=== PATIENT | male | born 1970 | race Caucasian/White ===

== ENCOUNTER 2019-08-22 07:52 | Outpatient (CLI) | payer MEDICARE, OTHER, SELFPAY ==
[2019-08-22 08:51] LABS: Estmated Average Glucose 134; Hemoglobin A1C 6.3 % (4.0-6.0)
== END 2019-08-22 07:53 | disposition home or self-care (01) ==
LOC: LAB 07:53
PROVIDERS: Family Provider Family Medicine; PCP Family Medicine; Visit Provider Family Medicine
DX: E11.9 Type 2 diabetes mellitus without complications (principal)
CPT/HCPCS: 36415; 83036

== ENCOUNTER 2022-02-17 13:46 | Emergency (ER) | payer MEDICARE, OTHER, SELFPAY ==
[2022-02-17 14:36] VITALS: BP 172/104; PULSE 93; RESP 16; TEMP 36.8; O2SAT 97; BMI 38.0
--- NOTE | 2022-02-17 16:12 | W.ED.GENADLT ---
HPI - General Adult General: Chief complaint: General Medical Stated complaint: Male issues Time Seen by Provider: 02/17/22 15:22 Source: patient and family Mode of arrival: ambulatory Limitations: no limitations History of Present Illness: Patient presents to the emergency department because he has a foreskin is retracted during showering this morning and he cannot seem to return it back to its anatomic position. He states he has not had much in the way of any issues with with this being a problem in the past. He denies any other symptoms at this time. Associated symptoms: Deny chest pain, dyspnea, headache(s), nausea, rash, palpitations or vomiting Review of Systems Const: Denies: fever(s) or chills Card: Denies: chest pain or palpitations Resp: Denies: dyspnea or productive cough GI: Denies: abdominal pain, nausea or vomiting : Denies: flank pain, difficulty urinating, dysuria or urinary frequency Musc: Denies: back pain or extremity pain Skin/Breast: Denies: rash or pruritus Neuro: Denies: headache(s), numbness in extremities or weakness in extremities Physical Exam Narrative: EXAM NARRATIVE: The patient's cooperative, calm, fluent and goal-directed and speech. GI: COMMON NORMALS: Normal to inspection, nondistended, normoactive bowel sounds present, Soft to palpation, non-tender, No hepatosplenomegaly present and no masses PALPATION: Yes Soft to palpation and Yes No hepatosplenomegaly present : PENIS: uncircumcised and paraphimosis MEATUS: meatus normal OTHER: He has an edematous glans penis with an edematous distal foreskin. Course Reevaluation(s): Reevaluation #1: Patient initially was treated with ice pack to the groin. Little success at that time. Subsequently his penis from glans to base of the shaft was compressed using a compression bandage. After approximately 15 to 20 minutes of compression the foreskin was reduced. We will allow him to continue with ice pack for discomfort and then ensure that he is able to urinate prior to discharge. I discussed the need for urology follow-up for evaluation for circumcision to prevent recurrence. Time: 17:53 Consultations: Consultation #1: Discussed with Dr. López who will see him in follow-up. Time: 17:57 Vital Signs: Vital signs: Vital Signs Temperature 98.3 F 02/17/22 14:36 Pulse Rate 93 02/17/22 14:36 Respiratory Rate 16 02/17/22 14:36 Blood Pressure 172/104 02/17/22 14:36 Pulse Oximetry 97 02/17/22 14:36 Oxygen Delivery Me thod 02/17/22 14:36 MDM - General Adult Medical Decision Making Uncircumcised male who had some difficulties in the past but only transiently with reducing his foreskin to anatomic position today came to the emergency department because he was unsuccessful with reducing his foreskin. Eventually after ice and compression of the penile shaft and glans we were able to successfully manually reduce the foreskin and he was able to urinate successfully afterwards. Urology was consulted for follow-up and the patient stable to be discharged home with follow-up. Discharge Plan Discharge Patient Disposition: Home Clinical Impression: Paraphimosis Condition: Stable Prescriptions: No Action lisinopril 5 mg Tablet 5 mg PO DAILY metformin 500 mg tablet extended release 24 hr 500 mg PO DAILY duloxetine 60 mg Capsule,Delayed Release(Dr/Ec) 60 mg PO DAILY Men's One Daily Tablet 1 tab PO DAILY Discharge Orders: Discharge ED (Routine); Ordered 02/17/22 Ordered By: Herman Arora Referrals: Deven López MD [Physician] - 4-7 days (paraphimosis referral) Discharge Diet: Usual diet Discharge Activity: Resume usual activity Patient Instructions: Acute Paraphimosis (ED), Opioid Safety Activity Restrictions/Additional Instructions: Continue usual activities. Be mindful of not allowing her foreskin to remain in a retracted position. Should this occur and you are unable to reduce it back to its normal position return to the emergency department immediately. We have made a arrangement for Dr. López to see you in follow-up. He should contact you or you may contact his office number for an appointment. Coding Level of Care Code ED Supervisor Insulation for Chg Fwd Exam Expanded Problem Focused
== END 2022-02-17 18:30 | disposition home or self-care (01) ==
PROVIDERS: Emergency Provider Emergency Medicine
DX: N47.2 Paraphimosis (principal); Z79.84 Long term (current) use of oral hypoglycemic drugs
CPT/HCPCS: 99282

== ENCOUNTER → 2022-03-17 08:19 | Outpatient (BNVA) | payer MEDICARE, OTHER, SELFPAY | PROVIDERS: Visit Provider Urology | DX: N47.2 Paraphimosis (principal); N47.1 Phimosis; N48.1 Balanitis | CPT/HCPCS: 81003; 99213 ==

== ENCOUNTER → 2022-08-16 16:15 | Outpatient (BNVA) | payer MEDICARE, OTHER, SELFPAY | PROVIDERS: PCP Family Medicine; Visit Provider Urology | DX: N48.1 Balanitis (principal); N47.1 Phimosis | CPT/HCPCS: 99213 ==

== ENCOUNTER → 2022-10-04 17:27 | Outpatient (BNVA) | payer MEDICARE, OTHER, SELFPAY | PROVIDERS: PCP Family Medicine; Visit Provider Urology | DX: N47.1 Phimosis (principal); N48.1 Balanitis | CPT/HCPCS: 88305 ==

== ENCOUNTER → 2022-11-22 14:46 | Outpatient (BNVA) | payer MEDICARE, OTHER, SELFPAY | PROVIDERS: PCP Family Medicine; Visit Provider Urology | DX: N47.1 Phimosis (principal); N48.1 Balanitis | CPT/HCPCS: 99213 ==

== ENCOUNTER 2023-06-06 08:22 | Outpatient (CLI) | payer MEDICARE, OTHER, SELFPAY ==
--- NOTE | 2023-06-06 08:29 | US_ITS ---
WS: [id number] RIGHT UPPER QUADRANT ULTRASOUND HISTORY: ELEVATED LIVER ENZYMES COMPARISON: None available. Liver: 19.3 cm in length. Moderately enlarged liver with hepatic steatosis. No mass or bile duct dila tation. Portal Vein: Normal hepatopetal flow with monophasic waveform. Gallbladder: Normally distended gallbladder with several stones. No wall thickening or pericholecysti c fluid. CBD: 0.5 cm Pancreas: Partially obscured. Right kidney: 11.8 cm in length. Normal size and echogenicity. No hydronephrosis or mass. Aorta and IVC: Unremarkable abdominal aorta and IVC. No ascites. IMPRESSION: 1. Cholelithiasis without acute cholecystitis. 2. Moderate hepatomegaly and hepatic steatosis.
== END 2023-06-06 08:23 | disposition home or self-care (01) ==
PROVIDERS: PCP Family Medicine; Visit Provider Family Medicine
DX: K80.20 Calculus of gallbladder without cholecystitis without obstruction (principal); R16.0 Hepatomegaly, not elsewhere classified; K76.0 Fatty (change of) liver, not elsewhere classified; R74.8 Abnormal levels of other serum enzymes
CPT/HCPCS: 76705

== ENCOUNTER 2023-06-13 10:10 | Outpatient (RCR) | payer OTHER, MEDICARE, SELFPAY | END 2023-06-24 23:59 | disposition home or self-care (01) | LOC: SPT 10:10 | PROVIDERS: PCP Family Medicine; Visit Provider Family Medicine | DX: M54.2 Cervicalgia (principal); M54.9 Dorsalgia, unspecified | CPT/HCPCS: 97110; 97161 ==

== ENCOUNTER 2023-06-25 06:00 | Outpatient (RCR) | payer OTHER, MEDICARE, SELFPAY | END 2023-07-25 23:59 | disposition home or self-care (01) | LOC: SPT 06:00 | PROVIDERS: PCP Family Medicine; Visit Provider Family Medicine | DX: M54.2 Cervicalgia (principal); M54.9 Dorsalgia, unspecified | CPT/HCPCS: 97110 ==

== ENCOUNTER → 2023-07-03 08:07 | Outpatient (BNVA) | payer MEDICARE, SELFPAY | PROVIDERS: PCP Family Medicine; Referring Provider Family Medicine; Visit Provider Surgery | DX: Z12.11 Encounter for screening for malignant neoplasm of colon (principal) | CPT/HCPCS: 99024; 99203 ==

== ENCOUNTER 2023-07-25 09:35 | Day surgery (SDC) | payer MEDICARE, SELFPAY ==
[2023-07-25 09:54] VITALS: BP 162/110; PULSE 90; RESP 16; TEMP 36.4; O2SAT 97
--- NOTE | 2023-07-25 10:05 | P.ANESASSM_ITS ---
Pre-Anesthetic Assessment Height/Weight: Height 1.73 m Weight 108.862 kg Temp Pulse Resp BP Pulse Ox O2 Del Method 97.5 F L 90 16 162/110 97 Room Air 07/25/23 09:54 07/25/23 09:54 07/25/23 09:54 07/25/23 09:54 07/25/23 09:54 07/25/23 09:54 Preop Diagnosis: screening Operation Date: 07/25/23 10:45 Proposed Procedures p 04597 colon G0121 screen colon A risk Z12.11(Not Applicable) - Marino Nair DO Familial anesthetic complications: none Was Beta Sandra taken within 24 hours: N/A Was Clonidine taken within 24 hours: N/A Last intake: Intake Last Liquid Date 07/24/23 Last Liquid Time 21:00 Last Solid Date 07/23/23 Last Solid Time 21:00 Social No alcohol and No tobacco Exam alert and oriented x 3 Airway Mallampati: Class II Dentition: full History/ROS No significant history except as noted Pulmonary None reported CV/HEM Hypertension None reported Hepatic None reported GI None reported Metabolic Diabetes Mellitus [facility] None reported Neuropsych None reported Anesthetic Plan ASA status: 2 Anesthesia: Anesthesia Evaluation and MAC Risk of > 500 ml blood loss (7ml/kg in children): No Medications/Allergies Home Medications Medication Instructions Recorded Confirmed Last Taken Type duloxetine 60 mg capsule,delayed 60 mg PO DAILY 02/17/22 07/24/23 07/24/23 History release lisinopril 5 mg tablet 5 mg PO DAILY 02/17/22 07/24/23 07/24/23 History metformin 500 mg tablet,extended 1,000 mg PO DAILY 02/17/22 07/24/23 07/24/23 History release 24 hr multivitamin with minerals (Men's 1 tab PO DAILY 02/17/22 07/24/23 07/24/23 History One Daily tablet) semaglutide 0.25 mg or 0.5 mg (2 0.25 mg SUBCUT Q7D 07/03/23 07/24/23 07/17/23 History mg/3 mL) subcutaneous pen injector (Ozempic) duloxetine 30 mg capsule,delayed 30 mg PO DAILY 07/24/23 07/24/23 07/24/23 History release omeprazole 20 mg capsule,delayed 20 mg PO DAILY 07/24/23 07/24/23 07/24/23 History release Allergies Allergy/AdvReac Type Severity Reaction Status Date / Time No Known Allergies Allergy Verified 07/03/23 08:09 [facility] Anesthesia Family History Father Cancer prostate Mother No problems noted. Social History Smoking and tobacco/nicotine status: never used tobacco/nicotine Alcohol intake: current Alcohol intake frequency: holidays/special occasions only Substance/Drug Use: never Marital status: Current occupational status: disabled Data Anesthesia Cardiac Studies: No Data to Display
[2023-07-25 10:06] LABS: Glucose Point of Care 118 mg/dL (70-110)
[2023-07-25] MEDS: sodium chloride 0.9% 1,000 ML 30 ML IV (10:11)
--- NOTE | 2023-07-25 10:35 | W.PM.OPSUD ---
Surgery/Procedure H&P Update DATE OF PROCEDURE: July 25, 2023 DATE H&P PERFORMED: 07/03/23 H&P UPDATE INFORMATION: I have reviewed H&P completed within last 30 days, I have examined patient prior to procedure and No changes to prior documentation PREOP DIAGNOSIS: screening PLANNED PROCEDURE: Operation Date: 07/25/23 10:45 Proposed Procedures p 78221 colon G0121 screen colon A risk Z12.11(Not Applicable) - Marino Nair, DO
[2023-07-25 11:04] VITALS: BP 124/88; PULSE 97; RESP 16; TEMP 36.1; O2SAT 96
[2023-07-25 11:09] VITALS: BP 128/78; PULSE 83; RESP 18; O2SAT 97
[2023-07-25 11:19] VITALS: BP 134/88; PULSE 79; RESP 18; O2SAT 97
--- NOTE | 2023-07-25 11:35 | ANE.PACU2 ---
Inpatient post-anesthesia follow up: Airway intact: Yes Vital signs: Temperature 97.0 F Pulse Rate 79 Respiratory Rate 18 Blood Pressure 134/88 Pulse Oximetry 97 Oxygen Delivery Me thod Room Air Oxygen Flow Rate Fraction of Inspir ed Oxygen Hydration adequate: Yes Nausea and vomiting: No Pain level: 1 Mental status: Baseline
== END 2023-07-25 11:36 | disposition home or self-care (01) ==
PROVIDERS: PCP Family Medicine; Visit Provider Surgery
PROC: 0DJD8ZZ Inspection of Lower Intestinal Tract, Via Natural or Artificial Opening Endoscopic (ICD-10-PCS; CPT 45378; principal; 2023-07-25 10:45)
DX: Z12.11 Encounter for screening for malignant neoplasm of colon (principal); K57.30 Diverticulosis of large intestine without perforation or abscess without bleeding; I10 Essential (primary) hypertension; E11.9 Type 2 diabetes mellitus without complications; Z79.84 Long term (current) use of oral hypoglycemic drugs
CPT/HCPCS: 36416; 82962; G0121; J2704; J7030

== ENCOUNTER 2023-07-26 06:00 | Outpatient (RCR) | payer MEDICARE, SELFPAY | END 2023-08-23 23:59 | disposition home or self-care (01) | LOC: SPT 06:00 | PROVIDERS: PCP Family Medicine; Visit Provider Family Medicine | DX: M54.2 Cervicalgia (principal); M54.9 Dorsalgia, unspecified | CPT/HCPCS: 97110 ==

== ENCOUNTER 2024-02-06 10:37 | Outpatient (CLI) | payer MEDICARE, SELFPAY ==
--- NOTE | 2024-02-06 10:48 | MR_ITS ---
WS: [id number] MRI CERVICAL SPINE NONCONTRAST HISTORY: TRIGEMINAL NEURALGIA COMPARISON: None available. Technique: Multiplanar, multisequence noncontrast imaging of the cervical spine. Mild straightening of the normal cervical lordosis may be positional. Mild disc space narrowing and d esiccation. Small vertebral body osteophytes. Signal within the cervical cord is normal. Visualized posterior fossa is unremarkable. Craniocervical junction, C1 and C2 relationship, odontoid process and soft tissues are normal. C2-C3: Normal. C3-C4: Mild osteophytic ridging and disc bulging. Mild bilateral foraminal narrowing. C4-C5: Mild osteophytic ridging and disc bulging. Small foraminal osteophytes. No significant stenosi s. C5-C6: Mild osteophytic ridging and disc bulging. Small RIGHT foraminal osteophytes resulting in mild RIGHT foraminal stenosis. C6-C7: Mild osteophytic ridging and disc bulging. Slightly greater osteophytosis LEFT foramen. There is a shallow LEFT paracentral disc osteophyte. Mild central and bilateral foraminal stenosis. C7-T1: Normal. Paraspinal soft tissue are normal. MR/MR cervical spin wo con* [id number] IMPRESSION: 1. No high-grade central or foraminal stenosis. 2. Mild diffuse spondylosis. 3. C6-7: Mild central and bilateral foraminal stenosis due to disc and osteoph yte disease as above. 4. Mild bilateral foraminal narrowing at C3-4 and on the RIGHT at C5-6.
== END 2024-02-06 10:38 | disposition home or self-care (01) ==
LOC: RAD 10:38
PROVIDERS: PCP Family Medicine; Visit Provider Family Medicine
DX: G50.0 Trigeminal neuralgia (principal); M25.78 Osteophyte, vertebrae; M54.2 Cervicalgia
CPT/HCPCS: 72141

== ENCOUNTER 2024-08-15 01:00 | Emergency (ER) | payer MEDICARE, SELFPAY ==
[2024-08-15] VITALS (8 sets, daily range): BP systolic 133–226; BP diastolic 81–123; PULSE 77–86; RESP 14–21; TEMP 36.4; O2SAT 95–99; BMI 37.2
--- NOTE | 2024-08-15 01:12 | ECG_ITS ---
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1970 Requested By: Jordan Muñoz Order Number: [id number] Tristan MD: MARIEL SANTANA Measurements Intervals [place] Rate: 80 P: 41 MO: 150 QRS: -31 QRSD: 118 T: 44 QT: 382 QTc: 443 Interpretive Statements SINUS RHYTHM WITH OCCASIONAL SUPRAVENTRICULAR PREMATURE COMPLEXES LEFT AXIS DEVIATION [QRS AXIS < -30] VOLTAGE CRITERIA FOR LVH [MEETS CRITERIA IN ONE OF: R(aVL), S(V1), R(V5), R(V5/V6)+S(V1)] POSSIBLE LATERAL MYOCARDIAL INFARCTION , OF INDETERMINATE AGE [30 ms Q WAVE IN I/aVL/V5/V6] No previous ECG available for comparison Electronically Signed On 08-19-2024 23:44:50 CRUTCHING CONTRACTOR by MARIEL SANTANA [email or web address]
--- NOTE | 2024-08-15 02:12 | XRR_ITS ---
PROCEDURE INFORMATION: Exam: XR Chest Exam date and time: 08/15/2024 2:21 AM Age: 54 years old Clinical indication: Other: High blood pressure; Additional info: Hypertension chest pain TECHNIQUE: Imaging protocol: Radiologic exam of the chest. Views: 1 view. COMPARISON: CR XR chest 2V* [id number] 03/24/2021 2:16 PM FINDINGS: Lungs: Unremarkable. No consolidation. Pleural spaces: Unremarkable. No pleural effusion. No pneumothorax. Heart/Mediastinum: Unremarkable. No cardiomegaly. Bones/joints: Unremarkable. XR/XR chest 1V portable [id number] IMPRESSION: No acute findings.
--- NOTE | 2024-08-15 02:12 | W.ED.ARRPALP ---
HPI - Arrhythmia/Palpitations General: Chief Complaint: Arrhythmia/Palpitations Stated Complaint: High blood pressure throbbing in neck 200/126 Time Seen by Provider: 08/15/24 02:08 History of Present Illness: The presents to the ER with complaints of high blood pressure and feeling his heart beating up into his neck. Patient did also see had a lipid left-sided chest pain but this is resolved. Patient woke up feeling weird and checked his blood pressure and it was in the 220s. Patient is on lisinopril 5 mg but he said this is mainly for his kidney size blood pressure. Last time patient was at his primary care's office doctor said his blood pressure was a little high but with his disc on a watch it. Patient denies any breath, diaphoresis, nausea vomiting Related Data Home Medications ?Medication ?Instructions ?Recorded ?Confirmed duloxetine 60 mg capsule,delayed 60 mg PO DAILY 02/17/22 07/24/23 release lisinopril 5 mg tablet 5 mg PO DAILY 02/17/22 07/24/23 metformin 500 mg tablet,extended 1,000 mg PO DAILY 02/17/22 07/24/23 release 24 hr multivitamin with minerals (Men's 1 tab PO DAILY 02/17/22 07/24/23 One Daily tablet) semaglutide 0.25 mg or 0.5 mg (2 0.25 mg SUBCUT Q7D 07/03/23 07/24/23 mg/3 mL) subcutaneous pen injector (Ozempic) duloxetine 30 mg capsule,delayed 30 mg PO DAILY 07/24/23 07/24/23 release omeprazole 20 mg capsule,delayed 20 mg PO DAILY 07/24/23 07/24/23 release Previous Rx's ?Medication ?Instructions ?Recorded clonidine HCl 0.1 mg tablet 0.1 mg PO Q8H PRN Blood pressure 08/15/24 greater than 160 #30 tabs Allergies Allergy/AdvReac Type Severity Reaction Status Date / Time No Known Allergies Allergy Verified 08/15/24 01:15 Review of Systems General: Reports: 10 or more systems reviewed and unremarkable except in HPI and below PFSH ED PFSH: Family History Father Cancer prostate Mother No problems noted. Social History Smoking and tobacco/nicotine status: never used tobacco/nicotine Alcohol intake: current Alcohol intake frequency: holidays/special occasions only Substance/Drug Use: never Marital status: Current occupational status: disabled Physical Exam Const: COMMON NORMALS: no acute distress, average body habitus, patient oriented x3, no limitations, healthy appearing, alert and well nourished HENMT: COMMON NORMALS: normocephalic, atraumatic, hearing grossly normal bilaterally, external ears normal, Normal external nose present, moist oral mucous membranes and oropharynx normal HEAD & SCALP: normocephalic and atraumatic NOSE: Normal external nose present EXTERNAL EAR: Yes external ears normal Neck/C-Spine: COMMON NORMALS: full ROM, no lymphadenopathy, supple, no meningeal signs, no JVD and Thyroid normal THYROID: Thyroid normal Chest: COMMONS NORMALS: normal inspection of the chest and normal palpation of entire chest wall Resp: COMMON NORMALS: normal respiratory effort, No retractions, No use of accessory muscles and clear to auscultation bilaterally AUSCULTATION: clear to auscultation bilaterally Cardio: COMMON NORMALS: no JVD, regular rate, regular rhythm, S1 normal heart sound present, S2 normal heart sound present, No gallops present (Cardio), No clicks present (Cardio), No murmurs present (Cardio) and No rub (Cardio) RATE: regular rate RHYTHM: regular rhythm HEART SOUNDS: S1 normal heart sound present and S2 normal heart sound present GI: COMMON NORMALS: Normal to inspection, nondistended, normoactive bowel sounds present, Soft to palpation, non-tender, No hepatosplenomegaly present and no masses PALPATION: Yes Soft to palpation and Yes No hepatosplenomegaly present Neuro: COMMON NORMALS: patient oriented x3 SENSORIUM/ORIENTATION: Yes alert MENINGEAL SIGNS: Yes no meningeal signs Course Vital Signs: Vital signs: Vital Signs Temperature 97.5 F L 08/15/24 01:13 Pulse Rate 83 08/15/24 04:30 Respiratory Rate 21 H 08/15/24 04:30 Blood Pressure 148/90 08/15/24 04:30 Pulse Oximetry 95 08/15/24 04:30 Oxygen Delivery Me thod Room Air 08/15/24 04:30 MDM - Arrhythmia/Palpitations Medical Decision Making Patient was worked up in standard chest pain fashion with serial EKGs, enzymes, chest x-ray, all of which was benign, troponin initial was 22, 2-hour troponin was 18.5 for delta of -3.48. Patient rosa chest pain-free during his stay in ER his blood pressure did improve after given 0.2 mg clonidine. These results was discussed with the patient and his . Patient be discharged home. Medical Records I reviewed the patient's medical records. Lab Data I reviewed the patient's lab results. 08/15/24 02:16 08/15/24 02:16 Radiology Impressions Chest X-Ray 08/15/24 02:12 IMPRESSION: No acute findings. Laboratory Results WBC 8.46 10^3/uL (3.29-11.43) 08/15/24 02:16 RBC 5.18 10^6/uL (3.85-5.65) 08/15/24 02:16 Hgb 15.00 g/dL (11.27-16.99) 08/15/24 02:16 Hct 44.3 % (37-53) 08/15/24 02:16 MCV 85.5 fl (82-101) 08/15/24 02:16 MCH 29.0 pg (27-33) 08/15/24 02:16 MCHC 33.9 g/dL (30-55) 08/15/24 02:16 RDW 12.4 % (12.1-15.1) 08/15/24 02:16 Plt Count 304 10^3/cmm (157-399) 08/15/24 02:16 MPV 9.8 fL (7.4-10.4) 08/15/24 02:16 Neut % (Auto) 49.3 % 08/15/24 02:16 Lymph % (Auto) 37.7 % 08/15/24 02:16 [place] % (Auto) 8.2 % 08/15/24 02:16 Eos % (Auto) 3.3 % 08/15/24 02:16 Baso % (Auto) 1.1 % 08/15/24 02:16 Neut # (Auto) 4.18 10^3/uL (1.8-7.7) 08/15/24 02:16 Lymph # (Auto) 3.2 10^3/uL (0.8-4.8) 08/15/24 02:16 [place] # (Auto) 0.7 10^3/uL (0.2-0.9) 08/15/24 02:16 Eos # (Auto) 0.3 10^3/uL (0.0-0.8) 08/15/24 02:16 Baso # (Auto) 0.1 10^3/uL (0.0-0.1) 08/15/24 02:16 Nucleated RBC % (auto) 0 % 08/15/24 02:16 Nucleated RBCs # 0.0 /100WBC 08/15/24 02:16 Sodium 140 mmol/L (136-145) 08/15/24 02:16 Potassium 4.3 mmol/L (3.5-5.1) 08/15/24 02:16 Chloride 104 mmol/L (98-107) 08/15/24 02:16 Carbon Dioxide 25 mmol/L (22-29) 08/15/24 02:16 Anion Gap 15.3 (5-19) 08/15/24 02:16 BUN 21 mg/dL (6-20) H 08/15/24 02:16 Creatinine 0.6 mg/dL (0.7-1.2) L 08/15/24 02:16 GFR Calculation 141.5 mL/min (90-130) H 08/15/24 02:16 Glucose 134 mg/dL (65-115) H 08/15/24 02:16 Calculated Osmolality 295 mOsm/kg (285-295) 08/15/24 02:16 Calcium 9.6 mg/dL (8.5-10.5) 08/15/24 02:16 Total Bilirubin 0.2 mg/dL (0.15-1.2) 08/15/24 02:16 AST 17 U/L (0-40) 08/15/24 02:16 ALT 38 U/L (0-41) 08/15/24 02:16 Alkaline Phosphatase 72 U/L (40-130) 08/15/24 02:16 Troponin T Baseline 22 ng/L (0-15) H 08/15/24 02:16 Troponin T 120 Minute 18.52 ng/L (0-15) H 08/15/24 03:54 Delta Troponin T -3.48 ABS# (0-10) L 08/15/24 03:54 Total Protein 6.7 g/dL (6.6-8.7) 08/15/24 02:16 Albumin 4.6 g/dL (3.5-5.2) 08/15/24 02:16 Globulin 2.1 g/dL (1.3-4.6) 08/15/24 02:16 TSH 2.70 uIU/mL (0.27-4.20) 08/15/24 02:16 All radiology interpretation(s) finalized by discharge Discharge Plan Discharge Patient Disposition: Home Clinical Impression: Hypertension Qualifiers: Hypertension type: unspecified Qualified Code(s): I10 - Essential (primary) hypertension Condition: Stable Prescriptions: New clonidine HCl 0.1 mg tablet 0.1 mg PO Q8H PRN (Reason: Blood pressure greater than 160) Qty: 30 0RF No Action Ozempic 0.25 mg or 0.5 mg (2 mg/3 mL) pen injector 0.25 mg SUBCUT Q7D lisinopril 5 mg Tablet 5 mg PO DAILY metformin 500 mg tablet extended release 24 hr 1,000 mg PO DAILY duloxetine 60 mg Capsule,Delayed Release(Dr/Ec) 60 mg PO DAILY Men's One Daily Tablet 1 tab PO DAILY omeprazole 20 mg capsule,delayed release(DR/EC) 20 mg PO DAILY duloxetine 30 mg capsule,delayed release(DR/EC) 30 mg PO DAILY Discharge Orders: Discharge ED (Routine); Ordered 08/15/24 Ordered By: Jordan Muñoz Referrals: Rohan Herrera, [Primary Care Provider] - 1 week Patient Instructions: Hypertension Activity Restrictions/Additional Instructions: Your evaluation in the ER did not show any significant abnormalities in your lab work, your blood pressure was high upon arrival. You were given clonidine to help lower it. You are also given a prescription for clonidine to take on an as-needed basis when your blood pressure is greater than 160. Please take your blood pressure least twice daily and keep a blood pressure log. Please also log how often you have to take the clonidine and take this information to your family doctor in the next 7 to 10 days for further reevaluation. Print Language: Ecuadorean Coding Level of Care Code ED Supervisor Road Administrator for Brianda Guidry
[2024-08-15 02:22] LABS: Basophils # 0.1 10^3/uL (0.0-0.1); Basophils % 1.1 %; Eosinophils # 0.3 10^3/uL (0.0-0.8); Eosinophils % 3.3 %; Hematocrit 44.3 % (37-53); Lymphocytes # 3.2 10^3/uL (0.8-4.8); Lymphocytes % 37.7 %; Mean Corpuscular HGB Conc 33.9 g/dL (30-55); Mean Corpuscular Volume 85.5 fl (82-101); Mean Platelet Volume 9.8 fL (7.4-10.4); Monocytes # 0.7 10^3/uL (0.2-0.9); Monocytes % 8.2 %; Neutrophils # 4.18 10^3/uL (1.8-7.7); Neutrophils % 49.3 %; Nucleated Red Blood Cells % 0 %; Platelet Count 304 10^3/cmm (157-399); Red Blood Count 5.18 10^6/uL (3.85-5.65); Red Cell Distribution Width 12.4 % (12.1-15.1); White Blood Count 8.46 10^3/uL (3.29-11.43)
[2024-08-15] MEDS: cloNIDine 0.1 mg Tablet PO (02:28)
[2024-08-15 02:46] LABS: Troponin(5th) Baseline 22 ng/L (0-15)
[2024-08-15 02:56] LABS: Alanine Aminotransferase 38 U/L (0-41); Albumin Level 4.6 g/dL (3.5-5.2); Alkaline Phosphatase 72 U/L (40-130); Anion Gap 15.3 (5-19); Aspartate Amino Transferase 17 U/L (0-40); Blood Urea Nitrogen 21 mg/dL (6-20); Calcium 9.6 mg/dL (8.5-10.5); Carbon Dioxide 25 mmol/L (22-29); Chloride 104 mmol/L (98-107); Creatinine Clr Calc Pharmacy 174.1504; Globulin 2.1 g/dL (1.3-4.6); Glomerular Filtration Rate 141.5 mL/min (90-130); Glucose 134 mg/dL (65-115); Osmolality Calculated 295 mOsm/kg (285-295); Potassium 4.3 mmol/L (3.5-5.1); Sodium 140 mmol/L (136-145); Total Bilirubin 0.2 mg/dL (0.15-1.2); Total Protein 6.7 g/dL (6.6-8.7)
--- NOTE | 2024-08-15 03:48 | ECG_ITS ---
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1970 Requested By: Jordan Muñoz Order Number: [id number] Tristan MD: MARIEL SANTANA Measurements Intervals [place] Rate: 83 P: 47 MN: 154 QRS: -36 QRSD: 107 T: 56 QT: 361 QTc: 425 Interpretive Statements SINUS RHYTHM WITH OCCASIONAL SUPRAVENTRICULAR PREMATURE COMPLEXES LEFT AXIS DEVIATION [QRS AXIS < -30] PATTERN CONSISTENT WITH PULMONARY DISEASE VOLTAGE CRITERIA FOR LVH [MEETS CRITERIA IN ONE OF: R(aVL), S(V1), R(V5), R(V5/V6)+S(V1)] Compared to ECG 08/15/2024 01:12:30 Myocardial infarct finding no longer present Electronically Signed On 08-19-2024 23:53:59 SENIOR INTERNATIONAL TAX MANAGER by MARIEL SANTANA [id number]
[2024-08-15 04:15] LABS: Troponin 5 2HR 18.52 ng/L (0-15)
[2024-08-15 04:17] LABS: Troponin 5 2HR Delta -3.48 ABS# (0-10)
== END 2024-08-15 05:01 | disposition home or self-care (01) ==
PROVIDERS: Emergency Provider Emergency Medicine; PCP Electrodiagnostic Medicine
DX: I10 Essential (primary) hypertension (principal); Z79.84 Long term (current) use of oral hypoglycemic drugs
CPT/HCPCS: 71045; 80053; 84443; 84484; 85025; 93005; 99285